=== PATIENT | female | born 1960 ===

== ENCOUNTER 2018-04-20 16:25 | Inpatient (IN) | payer MEDICAID ==
[2018-04-20 16:45] VITALS: O2SAT 99
--- NOTE | 2018-04-20 17:11 | ED PDOC ---
HPI: Psych/Substance Abuse Time Seen by Provider: 04/20/18 17:09 Chief Complaint (Nursing): Psychiatric Evaluation Chief Complaint (Provider): psych eval History Per: Patient (57 y/o female h/o psych illness unable to be seen by psych sent by pmd for evaluation and possible admission. Patient is currently on olanzapine/lithium/venfaxaline. Patient states she quit smoking and since then has felt agitated. Daughter notes pressured speech and bizarre behavior. Patient was in PMD's office and acting bizarre in waiting room.) Past Medical History Reviewed: Historical Data, Nursing Documentation, Vital Signs Vital Signs: Last Vital Signs Temp 98.1 F 04/20/18 16:41 Pulse 85 04/20/18 16:41 Resp 16 04/20/18 16:41 BP 143/102 H 04/20/18 16:41 Pulse Ox 99 04/20/18 16:41 - Family History Family History: States: No Known Family Hx - Home Medications Home Medications: Ambulatory Orders Medication Instructions Recorded Albuterol Sulfate [Ventolin Hfa] 2 puff IH Q6 PRN 04/20/18 Biotin 1 cap PO DAILY 04/20/18 Calcium Carbonate/Vitamin D3 1 tab PO BID 04/20/18 [Calcium 600 + Vit D Tablet] Cyanocobalamin [Vitamin B12 1000 1 tab PO DAILY 04/20/18 mcg Tab] Fluticasone Nasal [Flonase] 2 spray IGNACIO DAILY PRN 04/20/18 Fluticasone/Salmeterol [Airduo 1 puff IH Q12 04/20/18 Respiclick 113-14 Mcg] Ibuprofen [Motrin Tab] 600 mg PO Q6 PRN 04/20/18 Globe Carbonate [Globe 300 mg PO Q12 04/20/18 Carbonate 300MG] Olanzapine [Zyprexa] 5 mg PO HS 04/20/18 Omeprazole 20 mg PO DAILY 04/20/18 Promethazine HCl 10 ml PO Q6 PRN 04/20/18 Simvastatin 10 mg PO HS 04/20/18 Venlafaxine HCl 75 mg PO DAILY 04/20/18 - Allergies Allergies/Adverse Reactions: Allergies Allergy/AdvReac Type Severity Reaction Status Date / Time No Known Allergies Allergy Verified 04/20/18 16:41 Review of Systems ROS Statement: Except As Marked, All Systems Reviewed And Found Negative Physical Exam - Reviewed Nursing Documentation Reviewed: Yes Vital Signs Reviewed: Yes - Physical Exam Appears: Positive for: Well, Non-toxic, No Acute Distress Head Exam: Positive for: ATRAUMATIC, NORMAL INSPECTION, NORMOCEPHALIC Skin: Positive for: Normal Color, Warm, DRY Eye Exam: Positive for: EOMI, Normal appearance, PERRL ENT: Positive for: Normal ENT Inspection Neck: Positive for: Normal, Painless ROM Cardiovascular/Chest: Positive for: Regular Rate, Rhythm Respiratory: Positive for: CNT, Normal Breath Sounds Gastrointestinal/Abdominal: Positive for: Normal Exam, Soft Back: Positive for: Normal Inspection Extremity: Positive for: Normal ROM Neurologic/Psych: Positive for: Alert, Oriented - Laboratory Results Result Diagrams: 04/20/18 17:20 04/20/18 17:20 - ECG O2 Sat by Pulse Oximetry: 99 - Progress ED Course And Treament: SEEN BY CRISIS ADMITTED TO [facility] DIAGNOSIS BIPOLAR DISORDER Disposition - Clinical Impression Clinical Impression: Bipolar disorder - Patient ED Disposition Is Patient to be Admitted: Yes - Disposition Disposition Time: 18:48 Condition: FAIR - Pt Status Changed To: Hospital Disposition Of: Inpatient - Admit Certification Admit to Inpatient:: After my assessment, the patient will require hospitalization for at least two midnights. This is because of the severity of symptoms shown, intensity of services needed, and/or the medical risk in this patient being treated as an outpatient.
[2018-04-20 17:32] LABS: BASO % 0.4 % (0.0-2.0); EOS # 0.1 K/uL (0.0-0.7); EOS % 1.3 % (0.0-4.0); HEMOGLOBIN 12.6 g/dL (12.0-16.0); LYMPH # 3.8 K/uL (1.0-4.3); LYMPH % 42.3 % (20.0-40.0); MEAN CELL VOLUME 92.4 fl (81.0-99.0); MEAN CORPUSCULAR HEMOGLOBIN 29.9 pg (27.0-31.0); MEAN CORPUSCULAR HGB CONC 32.4 g/dL (33.0-37.0); MONO # 0.5 K/uL (0.0-0.8); MONO % 5.3 % (0.0-10.0); NEUT # 4.6 K/uL (1.8-7.0); NEUT % 50.7 % (50.0-75.0); RBC 4.22 Mil/uL (3.80-5.20); RED CELL DISTRIBUTION WIDTH 13.9 % (11.5-14.5)
[2018-04-20 17:36] LABS: SQUAMOUS EPITHIAL 1 /hpf (0-5); URINE BACTERIA RARE (<OCC); URINE BILIRUBIN NEGATIVE (NEGATIVE); URINE BLOOD SMALL (NEGATIVE); URINE CLARITY CLEAR (Clear); URINE COLOR STRAW (YELLOW); URINE GLUCOSE (UA) NEG (NEGATIVE); URINE LEUKOCYTE ESTERASE NEG Leu/uL (Negative); URINE PROTEIN NEGATIVE (NEGATIVE); URINE UROBILINOGEN 0.2-1.0 mg/dL (0.2-1.0)
[2018-04-20 17:44] LABS: ALB/GLOB RATIO 1.3 (1.0-2.1); ALBUMIN 4.5 g/dL (3.5-5.0); ALT/SGPT 46 U/L (9-52); AST/SGOT 50 U/L (14-36); BLOOD UREA NITROGEN 11 mg/dl (7-17); CALCIUM 9.2 mg/dL (8.4-10.2); GFR NON-AFRICAN AMERICAN > 60
--- NOTE | 2018-04-20 18:21 | RAD ---
Date of service: 04/20/2018 HISTORY: routine COMPARISON: No prior. FINDINGS: LUNGS: The lungs are well inflated and clear. PLEURA: No pleural effusions or pneumothorax. CARDIOVASCULAR: The heart is normal in size. No aortic atherosclerotic calcification present. OSSEOUS STRUCTURES: Within normal limits for the patient's age. VISUALIZED UPPER ABDOMEN: Normal. OTHER FINDINGS: None. IMPRESSION: No active pulmonary disease.
--- NOTE | 2018-04-20 22:38 | PCM.BM ---
<Destiney Moura - Last Filed: 04/21/18 02:15> Treatment Plan Problems - Problems identified on initial assessmt Agitated/Aggressive Behavior Date Initiated: 04/20/18 Time Initiated: 22:36 Assessment reference: NA Status: Active Anxiety Date Initiated: 04/20/18 Time Initiated: 22:37 Assessment reference: NA Status: Active Altered Sleep Patterns Date Initiated: 04/20/18 Time Initiated: 22:37 Assessment reference: NA Status: Active Delusion Date Initiated: 04/21/18 Time Initiated: 02:15 Assessment reference: NA Status: Active Treatment assets and liabiliti Patient Assests: cooperative, educated, self-reliant, ADL independent, good support system, negotiates basic needs, financial stabiity, cognitively intact Patient Liabilities: medical problems - Milieu Protocol Maintain good personal hygiene: daily Encourage regular showers, other Remind patient to perform daily oral care, other Assist patient to perform ADL's Conduct patient checks and document Observation sheet: Q15 minutes Maintain personal safety: every shift Educate patient to report safety concerns to staff, every shift Monitor environment for contraband/sharps Medication safety: Monitor for expected outcome, potential side effects: every shift, Assess barriers to learning: every shift, Assess readiness for medication education: every shift <Raymundo Smith - Last Filed: 04/24/18 18:55> Family Contact Family involvement: Family/SO is involved Family contact: Patient agrees to contact, Family has been contacted by patient, Telephone contact initiated by staff Family contact name: Carmina - Daughter ([phone]) Family contacted how many times per week?: 2 Family contact comment: Child Life Specialist spoke with pt's daughter, Carmina [phone], to update her on pt's care and progress on unit. Carmina reported that her mother appears to be improving on the unit and that her mother is "hyper" and a "talker" at baseline. Child Life Specialist explained that pt is still difficult to understand, intrusive, and sexually inappropriate on the unit, so she will require more time to stabilize. Child Life Specialist explained that pt has lack of insight and expresses only that she is nervous and anxious. Daughter wants to ensure that staff does not release pt as she is asking to leave. Child Life Specialist explained that pt would be required to sign a 48 hour notice prior to leaving the unit at this time as she is not psych stable. Carmina is concerned that pt is not on her previous medications and wants to confirm this with the doctor. Child Life Specialist relayed information regarding pt's current Zyprexa and [place] dosages. Child Life Specialist made appointment to meet with Carmina at 1300 on 04/23/18. - Goals for Treatment Patient goals for treatment: Pt has no goals for treatment at this time as she is actively asking to leave because she feels better and lacks complete insight into her current symptoms. Discharge/Continuing Care - Education Needs Education Needs: Patient Medication, Patient Diagnosis/Disease Process, Patient Coping Skills, Patient Community resources - Discharge Discharge Criteria: Tolerates medication w/o severe side effects, Free of paranoid thoughts, Free of agitation, Normal sleep pattern, Ability to care for self, Reduction of target symptoms Discharge to:: Home, With Family - Treatment Team Participation Discussed with Family/SO: Yes Was Patient/Family/SO present at Treatment Team Meeting: Yes
[2018-04-20] MEDS ORDERED: Magnesium Hydroxide Susp 30 ml UD PO PRN (22:42)
[2018-04-20] MEDS ORDERED: DiphenhydrAMINE 50 mg/ml Inj IM PRN (22:42)
[2018-04-21] MEDS: Alum-Mag Hydrox-Simethicone Susp (30 mL) PO PRN ×2 (00:45→11:24)
[2018-04-21 08:00] LABS: T4 4.05 ug/dl (5.5-11.0)
[2018-04-21] MEDS ORDERED: Pneumococcal 23-Valent Vaccine IM ONE (09:00)
--- NOTE | 2018-04-21 09:14 | CARD ---
APPROVED REPORT Date of service: 04/20/2018 EKG Measurement Heart [id number] <Conclusion> Normal sinus rhythm Possible Left atrial enlargement Borderline ECG
[2018-04-21] MEDS ORDERED: Haloperidol Lactate 2 mg/ml Liquid PO PRN (11:30)
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
[2018-04-22] MEDS: Alum-Mag Hydrox-Simethicone Susp (30 mL) PO PRN ×3 (00:21→21:14)
[2018-04-22 03:00] LABS: BARBITURATES, UR NEGATIVE (NEGATIVE); BENZODIAZEPINES, UR NEGATIVE (NEGATIVE); OPIATES, UR NEGATIVE (NEGATIVE); PHENCYCLIDINE, UR NEGATIVE (NEGATIVE)
--- NOTE | 2018-04-22 14:32 | CP.PCM.CON ---
History of Present Illness - History of Present Illness History of Present Illness: 57 yo female admitted to psyche unit because of bizarre behaviour Review of Systems - Review of Systems All systems: reviewed and no additional remarkable complaints except (aside from those mentioned above, 12 point system review were negative by me) Past Patient History - Tetanus Immunizations Tetanus Immunization: Unknown - Past Social History Smoking Status: Heavy Smoker > 10 Cigarettes Daily Chewing Tobacco Use: No Cigar Use: No Alcohol: None Drugs: Denies - CARDIAC Hx Cardiac Disorders: No Hx Hypertension: No - PULMONARY Hx Respiratory Disorders: Yes Hx Asthma: Yes - NEUROLOGICAL Hx Neurological Disorder: No HX Cerebrovascular Accident: No Hx Seizures: No - HEENT Hx HEENT Problems: No - RENAL Hx Chronic Kidney Disease: No - ENDOCRINE/METABOLIC Hx Endocrine Disorders: No - HEMATOLOGICAL/ONCOLOGICAL Hx Blood Disorders: No Hx Cancer: No Hx Human Immunodeficiency Virus (HIV): No - INTEGUMENTARY Hx Dermatological Problems: No - MUSCULOSKELETAL/RHEUMATOLOGICAL Hx Musculoskeletal Disorders: No - GASTROINTESTINAL Hx Gastrointestinal Disorders: No - GENITOURINARY/GYNECOLOGICAL Hx Genitourinary Disorders: No Hx Sexually Transmitted Disorders: No - PSYCHIATRIC Hx Substance Use: No - SURGICAL HISTORY Hx Surgeries: No - ANESTHESIA Hx Anesthesia: No Meds Allergies/Adverse Reactions: Allergies Allergy/AdvReac Type Severity Reaction Status Date / Time No Known Allergies Allergy Verified 04/20/18 16:41 - Medications Medications: Current Medications Acetaminophen (Tylenol 325mg Tab) 650 mg PO Q4 PRN PRN Reason: pain 1-7 Last Admin: 04/22/18 04:04 Dose: 650 mg Al Hydrox/Mg Hydrox/Simethicone (Maalox Plus 30 Ml) 30 ml PO Q4 PRN PRN Reason: Dyspepsia Last Admin: 04/22/18 04:05 Dose: 30 ml Diphenhydramine HCl (Benadryl) 50 mg IM Q6 PRN PRN Reason: Extrapyramidal S/S Unable PO Diphenhydramine HCl (Benadryl) 50 mg PO Q6 PRN PRN Reason: Extrapyramidal Symptoms Diphenhydramine HCl (Benadryl) 50 mg PO HS PRN PRN Reason: Sleep Haloperidol Lactate (Haldol) 5 mg IM Q4 PRN PRN Reason: Agitation, Unable to Take PO Haloperidol Lactate (Haldol) 5 mg PO Q4 PRN PRN Reason: Agitation [place] Carbonate ([place] Carbonate 300mg) 300 mg PO AMHS [facility] Last Admin: 04/22/18 09:21 Dose: 300 mg Lorazepam (Ativan) 2 mg IM Q6 PRN PRN Reason: Anxiety/Agitation,Unable PO Lorazepam (Ativan) 1 mg PO Q8 PRN PRN Reason: Anxiety/Agitation Last Admin: 04/21/18 08:46 Dose: 1 mg Magnesium Hydroxide (Milk Of Magnesia) 30 ml PO HS PRN PRN Reason: Constipation Nicotine (Nicoderm Cq) 1 patch TD DAILY [facility] Last Admin: 04/22/18 09:20 Dose: 1 patch Olanzapine (Zyprexa) 10 mg PO HS [facility] Last Admin: 04/21/18 21:59 Dose: 10 mg Physical Exam - Constitutional Appears: No Acute Distress - Head Exam Head Exam: ATRAUMATIC - Eye Exam Eye Exam: absent: Scleral icterus - ENT Exam ENT Exam: Mucous Membranes Moist - Neck Exam Neck exam: Negative for: Meningismus - Respiratory Exam Respiratory Exam: absent: Rales, Rhonchi, Wheezes, Respiratory Distress - Cardiovascular Exam Cardiovascular Exam: REGULAR RHYTHM, +S1, +S2 - GI/Abdominal Exam GI & Abdominal Exam: Soft. absent: Tenderness - Rectal Exam Rectal Exam: Deferred - Neurological Exam Neurological exam: Alert, Oriented x3 - Psychiatric Exam Psychiatric exam: Normal Affect - Skin Skin Exam: Dry, Intact Results - Vital Signs Recent Vital Signs: Last Vital Signs Temp 98.2 F 04/22/18 09:00 Pulse 90 04/22/18 09:00 Resp 18 04/22/18 09:00 BP 126/86 04/22/18 09:00 Pulse Ox 99 04/20/18 21:50 - Labs Result Diagrams: 04/20/18 17:20 04/20/18 17:20 Labs: Laboratory Results - last 24 hr 04/21/18 04/22/18 06:10 01:30 Urine Opiates Screen Negative Urine Methadone Screen Negative Ur Barbiturates Screen Negative Ur Phencyclidine Scrn Negative Ur Amphetamines Screen Negative U Benzodiazepines Scrn Negative U Oth Cocaine Metabols Negative U Cannabinoids Screen Negative RPR Nonreactive Assessment & Plan (1) Bizarre behavior Status: Acute Comment: psyche is managing
--- NOTE | 2018-04-22 17:28 | PCM.PYCHPN ---
Psychiatric Progress Note - Psychiatric Progress Note Patient seen today, length of contact: chart reviewed case discussed with team Patient Chief Complaint: speaks of having energy at times being easily distracted not finishing things, many things started, admits slept last night, prior to admission had not slept for 2-3 days, team report at times pt appears labile is rx adherent pt did receive prn lorazepam last night- Problems Identified/Issues Discussed: alteration in mood alteration in cognition alteration in sleep Medical Problems: per chart Diagnostic Results: per psychiatry per medicine per nursing per social work per recreational therapy DSM 5 Symptoms Update: some improvement mood(remains labile at times0, some improvement sleep, denies side effects rx Medication Change: No Medical Record Reviewed: Yes Consults ordered or reviewed: pt seen by hospitalist Mental Status Examination - Cognitive Function Orientation: Person, Place, Situation, Time Attention: Poor Concentration: Poor Association: Loose Fund of Knowledge: Poor Decription of patient's judgement and insights: impaired - Mood Mood: Depressed, Anxious - Affect Affect: Broad - Homicidal Ideation Homicidal Ideation: No Goal/Treatment Plan - Goal/Treatment Plan Progress Toward Problem(s) and Goals/Treatment Plan: inpt milieu vital signs and clinical observation per protocol and per clinical status prns per unit protocol assess response to increased zyprexa 04-21-18 hospitalist consult ?sti work up admitted recent hx of non barrier sexual pr ecautions discharge planning in progress Estimated Date of D/C: 04/26/18 - Smoking Cessation Smoking Cessation Initiated: No Reason for not providing: pt defers
[2018-04-23] MEDS: Alum-Mag Hydrox-Simethicone Susp (30 mL) PO PRN ×2 (05:27→21:44)
[2018-04-23] MEDS: Pantoprazole 40 mg EC Tab PO SCH (09:25)
--- NOTE | 2018-04-23 22:16 | PCM.PYCHPN ---
Psychiatric Progress Note - Psychiatric Progress Note Patient seen today, length of contact: chart reviewed case discussed with team Patient Chief Complaint: pt seen admits that she is feeling a little calmer, reportedly slept night through-staff corroborate this, staff report pt is somewhat less labile, somewhat easier to redirect, pt remains intrusive. reviewed with pt abnormal pt abnormal labs related to thyroid study likely 2nd to lithium , pt reports that she likes lithium as it "its one of the only ones that help me" pt is rx adherent. pt had visit from daughter. f Problems Identified/Issues Discussed: alteration in mood alteration in cognition alteration in sleep Medical Problems: per chart pt with abnormal thyroid study Diagnostic Results: per psychiatry per medicine per nursing per social work per recreational therapy DSM 5 Symptoms Update: remains labile and intrusive somewhat less Medication Change: No Medical Record Reviewed: Yes Consults ordered or reviewed: pt seen by hospitalist Mental Status Examination - Cognitive Function Orientation: Person, Place, Situation, Time Attention: Poor Concentration: Poor Association: Loose Fund of Knowledge: Poor Decription of patient's judgement and insights: impaired - Mood Mood: Depressed, Anxious Additional comments: somewhat less - Affect Affect: Broad - Speech Speech: Pressured - Formal Thought Process Formal Thought Process: Loosening of associations, Flight of ideas, Circumstantial Psychotic Thoughts and Behaviors: somewhat less - Homicidal Ideation Homicidal Ideation: No Goal/Treatment Plan - Goal/Treatment Plan Progress Toward Problem(s) and Goals/Treatment Plan: inpt milieu vital signs and clinical observation per protocol and per clinical status prns per unit protocol adjust meds per clinical status hospitalist consult ?sti work up admitted recent hx of non barrier sexual precautions discharge planning in progress Estimated Date of D/C: 04/26/18 - Smoking Cessation Smoking Cessation Initiated: No Reason for not providing: pt defers
[2018-04-24] MEDS: Alum-Mag Hydrox-Simethicone Susp (30 mL) PO PRN ×2 (08:30→21:40)
[2018-04-24] MEDS: Pantoprazole 40 mg EC Tab PO SCH (08:30)
--- NOTE | 2018-04-24 17:04 | PCM.PYCHPN ---
Psychiatric Progress Note - Psychiatric Progress Note Patient seen today, length of contact: chart reviewed case discussed with team Patient Chief Complaint: pt was seen last night able to participate in small group wiht two other peer, practiced communication, process of listening vs. hearing, giving others a chance to communicate. today pt was visiting by daughter, somewhat less intrusiveness, requires redirection related to intrusiveness, continues to over speak others, rx adherent, pt seen by hospitalist discussed abnormal thyroid study. Problems Identified/Issues Discussed: alteration in mood alteration in cognition alteration in sleep Medical Problems: per chart pt with abnormal thyroid study Diagnostic Results: per psychiatry per medicine per nursing per social work per recreational therapy DSM 5 Symptoms Update: somewhat less lability Medication Change: No Medical Record Reviewed: Yes Consults ordered or reviewed: pt seen by hospitalist case discussed by [place] captain related to thyroid study likely abnormal 2nd to lithium Mental Status Examination - Cognitive Function Orientation: Person, Place, Situation, Time Attention: Poor Concentration: Poor Association: Loose Fund of Knowledge: Poor Decription of patient's judgement and insights: impaired - Mood Mood: Depressed, Anxious Additional comments: somewhat less labile - Affect Affect: Broad - Speech Speech: Pressured - Formal Thought Process Formal Thought Process: Loosening of associations, Flight of ideas, Circumstantial Psychotic Thoughts and Behaviors: somewhat less - Homicidal Ideation Homicidal Ideation: No Goal/Treatment Plan - Goal/Treatment Plan Need for Continued Stay: Discharge may exacerbated symptoms, Severe functional impairment Progress Toward Problem(s) and Goals/Treatment Plan: inpt milieu vital signs and clinical observation per protocol and per clinical status: will increase zyprexa to 15mg po hs (lithium remain 300mg po bid -pending lithium level repeat along with cmp endocrine consult 2nd to abnormal thyroid study ?2nd lithium-pt requests to remain on lithium 2nd to reported benefit-is aware pt and can explain back status prns per unit protocol adjust meds per clinical status hospitalist consult ?sti work up admitted recent hx of non barrier sexual precautions discharge planning in progress Estimated Date of D/C: 04/26/18 - Smoking Cessation Smoking Cessation Initiated: No Reason for not providing: defers
--- NOTE | 2018-04-25 05:17 | CON ---
DATE: 04/24/2018 LOCATION: Room 319, Psychiatry. HISTORY OF PRESENT ILLNESS: This is a 57-year-old female with bipolar disorder, presenting here with behavioral disturbances and is now being referred for evaluation of abnormal thyroid function studies. PAST MEDICAL HISTORY: History of bipolar disorder and has been on lithium therapy as given. FAMILY HISTORY: Positive for hypertension and heart disease. No known thyroid endocrinopathy. SOCIAL HISTORY: Patient is a heavy smoker, consumes over a pack a day for some years now, has a supportive family otherwise. REVIEW OF SYSTEMS: Admits to generalized body weakness with increasing bouts of hypersomnolence and lethargy interspersed with insomnia. Also admits to bifrontal headaches and episodic dizziness and lightheadedness. No chest pains or palpitations. Her oral intake has been fairly satisfactory with occasional dyspepsia. Also admits to habitual constipation. PHYSICAL EXAMINATION: GENERAL: This is an average built female in no apparent distress. VITAL SIGNS: Blood pressure of 140/80, pulse of 70 beats per minute and regular, temperature 98, respirations 20, height is 5 feet 4 inches, weight is 162 pounds. HEENT: Head normocephalic. Eyes anicteric with pink conjunctivae. Funduscopy not possible at this time. Ears, nose and throat otherwise normal. NECK: Supple. Thyroid gland shows nodular thyromegaly, which is firm and nontender with no overt thyroid bruits nor any palpable thyroid nodules. HEART: Adynamic precordium. S1, S2. Slow and regular. LUNGS: Clear to auscultation. ABDOMEN: Flat, soft with positive bowel sounds. EXTREMITIES: No peripheral edema. Pulses are +2 bilaterally. LABORATORY DATA: Chemistry: BUN of 11, sodium 138, potassium 3.8, chloride 99, CO2 of 25, glucose 92, and creatinine 0.9. Her cholesterol is 188, HDL of 33, thyroxine or T4 is 4.05 with a TSH of 29. ASSESSMENT: This is a 57-year-old female with recent behavioral disturbances and agitation with underlying bipolar disorder, currently admitted for closer psychiatric evaluation and management and is also being referred for evaluation of abnormal thyroid studies. She has overt hypothyroidism both historically, clinically and biochemically most likely related to underlying autoimmune thyroiditis. She also has a nodular goiter with no overt palpable thyroid nodules at this time. PLAN OF MANAGEMENT: We will initiate levothyroxine therapy tomorrow morning with a dose of 75 mcg once daily and we will titrate incrementally to optimize metabolic control. A comprehensive thyroid hormonal profile will be repeated and we will also add thyroid antibodies to include the thyroid peroxidase antibody and a thyroglobulin antibody to confirm and/or indicate the presence of underlying thyroid autoimmunity. We will obtain serial thyroid studies accordingly. We will follow. Rosalina Lane MD
[2018-04-25] MEDS: Alum-Mag Hydrox-Simethicone Susp (30 mL) PO PRN (06:23)
[2018-04-25] MEDS ORDERED: Levothyroxine 75 MCG TAB PO SCH (06:30)
[2018-04-25 06:49] LABS: T4 3.73 ug/dl (5.5-11.0)
[2018-04-25] MEDS: Pantoprazole 40 mg EC Tab PO SCH (09:10)
--- NOTE | 2018-04-25 17:03 | PCM.PYCHPN ---
Psychiatric Progress Note - Psychiatric Progress Note Patient seen today, length of contact: chart reviewed case discussed with team Patient Chief Complaint: Seen in social area with peers, staff report pt appears calmer, rx adherent. pt denies side effects rx. dr. springer was in to see pt today. was reinforced with pt that lithium often effects thyroid function. rx adherent. p Problems Identified/Issues Discussed: alteration in mood alteration in cognition alteration in sleep Medical Problems: per chart pt with abnormal thyroid study Diagnostic Results: per psychiatry per medicine per nursing per social work per recreational therapy DSM 5 Symptoms Update: some improvement mood Medication Change: No Medical Record Reviewed: Yes Consults ordered or reviewed: pt seen by hospitalist and dr springer endocrine Mental Status Examination - Cognitive Function Orientation: Person, Place, Situation, Time Attention: Poor Concentration: Poor Association: Loose Fund of Knowledge: Poor Decription of patient's judgement and insights: impaired - Mood Mood: Depressed, Anxious Additional comments: improving - Affect Affect: Broad - Speech Speech: Pressured Additional comments: less - Formal Thought Process Formal Thought Process: Circumstantial Psychotic Thoughts and Behaviors: somewhat less - Suicidal Ideation Suicidal Ideation: No - Homicidal Ideation Homicidal Ideation: No Goal/Treatment Plan - Goal/Treatment Plan Need for Continued Stay: Discharge may exacerbated symptoms, Severe functional impairment Progress Toward Problem(s) and Goals/Treatment Plan: inpt milieu vital signs and clinical observation per protocol and per clinical status: will increase zyprexa to 15mg po hs (lithium remain 300mg po bid -pending lithium level repeat along with cmp dr springer in to see pt related to to endocrine consult 2nd to abnormal thyroid study ?2nd lithium-pt requests to remain on lithium 2nd to reported benefit-is aware pt and can explain back status prns per unit protocol adjust meds per clinical status hospitalist consult ?sti work up admitted recent hx of non barrier sexual precautions-pt requests to follow up upon discharge defers today discharge planning in progress Estimated Date of D/C: 04/27/18 - Smoking Cessation Smoking Cessation Initiated: No Reason for not providing: defers
--- NOTE | 2018-04-25 17:29 | PN ---
DATE: 04/25/2018 ENDO FOLLOWUP NOTE LOCATION: Room 319 Psychiatry. SUBJECTIVE: This is a 57-year-old female with recent admission for behavioral disturbances with underlying bipolar disorder and is now being followed closely also for metabolic management because of recent onset of overt hypothyroidism. She was started today on levothyroxine replacement therapy as tolerated and given. Her latest repeat chemistries showed a BUN of 11, sodium 138, potassium 3.8, chloride 99, CO2 of 25, glucose 92 and creatinine 0.9. Her latest thyroid study showed a T4 or thyroxine level of 3.73 with a TSH of 41 and a free T4 of 0.46. ASSESSMENT: This is a 57-year-old female with overt hypothyroidism, both historically, clinically and biochemically most likely related to underlying autoimmune thyroiditis. She also has a small nodular goiter with no overt compressive or obstructive symptoms as noted. PLAN OF MANAGEMENT: We will modify once again and titrate her levothyroxine dosing to a higher regimen with levothyroxine given as 100 mcg daily before breakfast to start tomorrow morning as ordered. We will titrate incremental as indicated to optimize metabolic control. We will also obtain thyroid antibodies, i.e. a thyroid peroxidase antibody and a thyroglobulin antibody which will confirm and/or indicate the presence of underlying thyroid autoimmunity. We will obtain serial chemistries and supplement accordingly as needed. We will follow. Rosalina Lane MD
[2018-04-26 08:41] LABS: ALB/GLOB RATIO 1.3 (1.0-2.1); ALBUMIN 4.4 g/dL (3.5-5.0); ALT/SGPT 66 U/L (9-52); AST/SGOT 65 U/L (14-36); BLOOD UREA NITROGEN 14 mg/dl (7-17); CALCIUM 9.3 mg/dL (8.4-10.2); GFR NON-AFRICAN AMERICAN 57
[2018-04-26] MEDS: Pantoprazole 40 mg EC Tab PO SCH (08:57)
[2018-04-26] MEDS: Levothyroxine 100 MCG TAB PO SCH (08:57)
[2018-04-26] MEDS ORDERED: Pneumococcal 23-Valent Vaccine IM ONE (11:18)
--- NOTE | 2018-04-26 14:01 | PN ---
DATE: 04/26/2018 LOCATION: Room 319, Psychiatry. SUBJECTIVE: This is a 57-year-old female with known history of bipolar disorder, presenting here with behavioral disturbances and currently undergoing closer psychiatric evaluation and management. She also at a recent evaluation had onset of overt hypothyroidism as noted and the latest thyroid study showed a T4 of 3.73 with a free T4 of 0.46. Her repeat TSH is 41. Her serum cortisol level is 13.4 mcg/dL. ASSESSMENT: This is a 57-year-old female with overt hypothyroidism noted both historically, clinically and biochemically, most likely related to underlying autoimmune thyroiditis with a nodular goiter as noted thereof. PLAN OF MANAGEMENT: We will continue the modified and higher dosing of the levothyroxine given as 100 mcg daily in the morning as ordered. We will obtain serial thyroid studies and titrate her dose regimen accordingly. We are also awaiting the reports of the thyroid antibodies, i.e., the thyroid peroxidase and thyroglobulin antibody which will confirm and/or negate the presence of underlying thyroid autoimmunity. We will follow. Rosalina Lane MD
--- NOTE | 2018-04-26 15:53 | PCM.PYCHPN ---
Psychiatric Progress Note - Psychiatric Progress Note Patient seen today, length of contact: chart reviewed case discussed with team Patient Chief Complaint: I get tremors in the morning Problems Identified/Issues Discussed: pt evaluated with treatment team and treatment plan discussed with pt daughter upon pt consent pt presenting with anxious mood and affect, speech is pressured and loud , thought form tangential and at times not goal directed, pt with paranoid delusions towards the daughter stating that the daughter is trying to control her life, continues to be manic with irritability, and hyperactivity pt reported side effects with lithium including tremors of hand, dizziness pt also noted to have hypothyroidism, discussed cross titrating lithium with depakote , pt agreed , pt denied any current thoughts of self harm denied perceptual disturbances DSM 5 Symptoms Update: bipolar disorder manic severe Medication Change: No Medical Record Reviewed: Yes Mental Status Examination - Cognitive Function Orientation: Person, Place, Situation, Time Attention: Poor Concentration: Poor Association: Loose Fund of Knowledge: Poor - Mood Mood: Depressed, Anxious - Affect Affect: Broad - Speech Speech: Pressured - Formal Thought Process Formal Thought Process: Paranoia, Circumstantial - Suicidal Ideation Suicidal Ideation: No - Homicidal Ideation Homicidal Ideation: No Goal/Treatment Plan - Goal/Treatment Plan Need for Continued Stay: Discharge may exacerbated symptoms, Severe functional impairment Progress Toward Problem(s) and Goals/Treatment Plan: discontinue llithium gradually start depakote 1000mg qhs olanzapine 10mg qhs cbt group and supportive therapy Estimated Date of D/C: 04/27/18
[2018-04-26] MEDS ORDERED: Divalproex 500 mg ER (ONCE DAILY formulation) PO SCH (22:00)
[2018-04-27] MEDS: Pantoprazole 40 mg EC Tab PO SCH (09:19)
[2018-04-27] MEDS: Levothyroxine 100 MCG TAB PO SCH (09:20)
[2018-04-27] MEDS ORDERED: Divalproex 500 mg DR(BID formulation) PO STA (11:49)
[2018-04-27] MEDS: Alum-Mag Hydrox-Simethicone Susp (30 mL) PO PRN (12:13)
--- NOTE | 2018-04-27 13:57 | PCM.PYCHPN ---
Psychiatric Progress Note - Psychiatric Progress Note Patient seen today, length of contact: chart reviewed case discussed with team Patient Chief Complaint: I slept better last night Problems Identified/Issues Discussed: pt evaluated with treatment team , reported improved sleep with increase in depakote, pt continues to be manic with pressured loud speech, circumstantial thought process, association less loose, , affect continues to be labile at times dancing and other times irritable and argumentative with other peers discussed with patient gradual increase of depakote and follow up on the level , no reported side effects, encouraged pt to attend groups , pt denied any current thoughts of self harm denied perceptual disturbances DSM 5 Symptoms Update: bipolar disorder manic Medication Change: Yes (increase depakote ) Medical Record Reviewed: Yes Mental Status Examination - Cognitive Function Orientation: Person, Place, Situation, Time Attention: WNL Concentration: Poor Association: Loose Fund of Knowledge: Poor Decription of patient's judgement and insights: partial insight , fair judgment - Mood Mood: Anxious - Affect Affect: Broad Additional comments: labile - Speech Speech: Loud, Pressured - Formal Thought Process Formal Thought Process: Paranoia, Circumstantial - Suicidal Ideation Suicidal Ideation: No - Homicidal Ideation Homicidal Ideation: No Goal/Treatment Plan - Goal/Treatment Plan Need for Continued Stay: Discharge may exacerbated symptoms, Severe functional impairment Progress Toward Problem(s) and Goals/Treatment Plan: discontinue llithium gradually increase depakote 1500mg qhs, follow up on level olanzapine 10mg qhs cbt group and supportive therapy Estimated Date of D/C: 04/30/18
--- NOTE | 2018-04-27 17:30 | PN ---
DATE: 04/27/2018 ENDO FOLLOWUP NOTE LOCATION: Room 319. SUBJECTIVE: This is a 57-year-old female with recent admission for bipolar disorder and recent behavioral disturbances, currently undergoing closer psychiatric evaluation and management and is also being followed closely for metabolic management. She remains clinically hypothyroid and biochemically has also overt hypothyroidism as noted. Her latest thyroid study showed a T4 of 3.73 with a TSH of 41 and a free T4 of 0.46. Her chemistry showed a BUN of 14, sodium 137, potassium 4.7, chloride 99, CO2 of 29, glucose 152 and creatinine 1. So at this time, we will continue the levothyroxine given as 100 mcg once daily in the morning as ordered. We will obtain serial chemistries and supplement accordingly as needed. We will follow. Rosalina Lane MD
[2018-04-27] MEDS: Divalproex 500 mg DR(BID formulation) PO SCH (21:53)
[2018-04-28] MEDS: Pantoprazole 40 mg EC Tab PO SCH (09:05)
[2018-04-28] MEDS: Divalproex 500 mg DR(BID formulation) PO SCH ×2 (09:06→22:02)
[2018-04-28] MEDS: Levothyroxine 100 MCG TAB PO SCH (09:06)
--- NOTE | 2018-04-28 10:23 | PCM.PYCHPN ---
Psychiatric Progress Note - Psychiatric Progress Note Patient seen today, length of contact: chart reviewed case discussed with team Patient Chief Complaint: I am afraid to take the medicine and become sleepy Problems Identified/Issues Discussed: pt evaluated , continues to have overproductive , at times pressured and loud speech, intrusive with other patients, needs redirection, reported mood is less irritable, affect continues to be labile, pt has refused to take the full prescribed amount of depakote last nigh, medication education provided, discussed with the patient the need to take medication as prescribed for mood stabilization, pt agreed , no reported side effects, pt denied any current thoughts of self harm denied perceptual disturbances DSM 5 Symptoms Update: bipolar I disorder MRE MANIC SEVERE Medication Change: No Medical Record Reviewed: Yes Mental Status Examination - Cognitive Function Orientation: Person, Place, Situation, Time Attention: WNL Concentration: Poor Association: Loose Fund of Knowledge: Poor Decription of patient's judgement and insights: partial insight , fair judgment - Mood Mood: Anxious - Affect Affect: Broad - Speech Speech: Loud, Pressured - Formal Thought Process Formal Thought Process: Paranoia, Circumstantial Psychotic Thoughts and Behaviors: PT DENIED PSYCHOTIC SYMPTOMS, NON ELICITED - Suicidal Ideation Suicidal Ideation: No - Homicidal Ideation Homicidal Ideation: No Goal/Treatment Plan - Goal/Treatment Plan Need for Continued Stay: Discharge may exacerbated symptoms, Severe functional impairment Progress Toward Problem(s) and Goals/Treatment Plan: depakote 1500mg qhs, follow up on level olanzapine 10mg qhs cbt group and supportive therapy Estimated Date of D/C: 04/30/18
[2018-04-28] MEDS: Alum-Mag Hydrox-Simethicone Susp (30 mL) PO PRN (12:00)
[2018-04-29] MEDS: Alum-Mag Hydrox-Simethicone Susp (30 mL) PO PRN (06:51)
[2018-04-29] MEDS: Levothyroxine 100 MCG TAB PO SCH (06:54)
[2018-04-29 08:23] LABS: T4 4.91 ug/dl (5.5-11.0)
[2018-04-29 08:30] LABS: ALB/GLOB RATIO 1.2 (1.0-2.1); ALBUMIN 3.9 g/dL (3.5-5.0); ALT/SGPT 69 U/L (9-52); AST/SGOT 47 U/L (14-36); BLOOD UREA NITROGEN 12 mg/dl (7-17); CALCIUM 8.9 mg/dL (8.4-10.2); GFR NON-AFRICAN AMERICAN > 60
[2018-04-29] MEDS: Pantoprazole 40 mg EC Tab PO SCH (08:55)
[2018-04-29] MEDS: Divalproex 500 mg DR(BID formulation) PO SCH ×2 (08:55→22:04)
--- NOTE | 2018-04-29 10:49 | PN ---
DATE: 04/28/2018 ENDOCRINOLOGY FOLLOWUP NOTE LOCATION: Room 319, Psychiatry. SUBJECTIVE: This is a 57-year-old female, admitted with behavioral disturbances and major depressive disorder with underlying bipolar disorder and currently undergoing closer psychiatric evaluation and management. She also has recent hypothyroidism and is tolerating her levothyroxine medication as given. Her latest thyroid studies showed a T4 of 3.73 and a TSH of 41 and free T4 of 0.46. Her latest chemistries showed a BUN of 14, sodium 137, potassium 4.7, chloride 99, CO2 of 29, glucose , and creatinine 1. So at this time, we will continue the modified basal and bolus insulin regimen given as hypothyroidism both historically, clinically, and biochemically most likely related to underlying autoimmune thyroiditis with an underlying goiter. PLAN OF MANAGEMENT: We will continue the modified levothyroxine therapy given as higher dosing of 100 mcg daily as ordered. We will obtain serial chemistries and supplement accordingly as needed. We will also obtain serial thyroid studies and titrate the dose regimen accordingly. We will obtain thyroid antibodies, thyroid peroxidase, and thyroglobulin antibody which will confirm and/or negate the presence of underlying thyroid autoimmunity. We will follow. Rosalina Lane MD
--- NOTE | 2018-04-29 15:16 | PCM.PYCHPN ---
Psychiatric Progress Note - Psychiatric Progress Note Patient seen today, length of contact: chart reviewed case discussed with team Patient Chief Complaint: I feel better and I need to go to [facility] Problems Identified/Issues Discussed: pt evaluated , presenting with calmer affect, less labile, reported mood is happy, speech less pressured and less loud, thought process more goal directed, pt reported feeling better on current medications, denied any current suicidal or homicidal ideation, denied perceptual disturbances DSM 5 Symptoms Update: bipolar I disorder MRE manic severe Medication Change: No Medical Record Reviewed: Yes Mental Status Examination - Cognitive Function Orientation: Person, Place, Situation, Time Attention: WNL Concentration: WNL Association: WN Fund of Knowledge: Poor Decription of patient's judgement and insights: partial insight , fair judgment - Mood Mood: Anxious, Neutral - Affect Affect: Broad - Speech Speech: Loud - Formal Thought Process Formal Thought Process: Circumstantial Psychotic Thoughts and Behaviors: PT DENIED PSYCHOTIC SYMPTOMS, NON ELICITED - Suicidal Ideation Suicidal Ideation: No - Homicidal Ideation Homicidal Ideation: No Goal/Treatment Plan - Goal/Treatment Plan Need for Continued Stay: Discharge may exacerbated symptoms, Severe functional impairment Progress Toward Problem(s) and Goals/Treatment Plan: depakote 1500mg qhs, follow up on level tomorrow AM olanzapine 10mg qhs cbt group and supportive therapy pt improving Estimated Date of D/C: 04/30/18
--- NOTE | 2018-04-29 16:12 | PN ---
DATE: 04/29/2018 ENDO FOLLOWUP ROOM: 319 SUBJECTIVE: This is a 57-year-old female with bipolar disorder, admitted here with behavioral disturbances and currently undergoing closer psychiatric evaluation and management. She also had overt hypothyroidism noted both historically, clinically and biochemically and is tolerating the levothyroxine medications as given and titrated thereof. Her repeat thyroid study showed a T4 or thyroxine level of 4.91 with a TSH of 15.60. Her latest free T4 is 0.84 and a cortisol level of 13.4. The chemistries today showed a BUN of 12, sodium 140, potassium 4.9, chloride 100, CO2 34, glucose 85 and creatinine 0.9, so at this time, we will continue the same dosing of the levothyroxine given as 100 mcg daily to allow for full dose equilibration as noted and ordered. We will obtain serial chemistry and supplement accordingly as needed. We will follow. Rosalina Lane MD
[2018-04-30] MEDS: Alum-Mag Hydrox-Simethicone Susp (30 mL) PO PRN (06:43)
[2018-04-30] MEDS: Levothyroxine 100 MCG TAB PO SCH (06:44)
[2018-04-30 09:15] VITALS: BP 124/75; PULSE 97; RESP 18; TEMP 97.9
[2018-04-30] MEDS: Divalproex 500 mg DR(BID formulation) PO SCH (09:17)
[2018-04-30] MEDS: Pantoprazole 40 mg EC Tab PO SCH (09:17)
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
--- NOTE | 2018-04-30 15:25 | PN ---
DATE: 04/30/2018 ENDOCRINOLOGY FOLLOWUP NOTE. LOCATION: Room 319, Psychiatry. SUBJECTIVE: This is a 57-year-old female with bipolar disorder, presenting here with behavioral disturbances and is also now being followed closely for metabolic management of recent hypothyroidism. Her repeat chemistry showed a BUN of 12, sodium 140, potassium 4.9, chloride 100, CO2 of 34, glucose 85 and creatinine 0.9. Her free T4 is 0.84 with a TSH of 15.60 which is a remarkable improvement since admission. Her total T4 or thyroxine level is 4.91. Her serum cortisol level is 13.4 mcg/dL. ASSESSMENT: This is a 57-year-old female with overt hypothyroidism related to underlying autoimmune thyroiditis with an underlying diffuse goiter as noted. PLAN OF MANAGEMENT: We will continue the levothyroxine given as 100 mcg daily as ordered to allow for full dose equilibration. It takes 4-6 weeks actually to normalize the TSH levels as noted. We will obtain serial chemistries and supplement accordingly as needed. We will also obtain serial thyroid studies and titrate her dose regimen accordingly. We are still awaiting the reports of the thyroid autoantibodies which will confirm and/or indicate the presence of underlying thyroid autoimmunity. We will follow. Rosalina Lane MD
== END 2018-04-30 13:50 | disposition home or self-care (01) | DRG 430 ==
LOC: H.ER 16:25 → H.ERHOLD 18:48 → H.PSYCH 21:57
PROVIDERS: ADMIT Psychiatry & Neurology Psychiatry; ATTEND Psychiatry & Neurology Psychiatry
PROC: GZHZZZZ Group Psychotherapy (ICD-10-PCS; principal; 2018-04-20)
PROC: GZ58ZZZ Individual Psychotherapy, Cognitive-Behavioral (ICD-10-PCS; 2018-04-20)
PROC: GZ56ZZZ Individual Psychotherapy, Supportive (ICD-10-PCS; 2018-04-20)
DX: F31.13 Bipolar disorder, current episode manic without psychotic features, severe (principal); E04.9 Nontoxic goiter, unspecified; E06.3 Autoimmune thyroiditis; F17.210 Nicotine dependence, cigarettes, uncomplicated; Z23 Encounter for immunization